=== PATIENT | female | born 1990 | race American Indian/Alaskan Native ===

== ENCOUNTER 2017-11-28 04:34 | Emergency (ER) | payer OTHER ==
[2017-11-28 05:23] LABS: Basophils # (Auto) 0.1 K/mm3 (0.0-0.1); Basophils % (Auto) 0.9 % (0.0-1.8); Eosinophils # (Auto) 0.1 K/mm3 (0.0-0.4); Eosinophils % (Auto) 0.8 % (0.0-4.3); Hematocrit 40.4 % (30.3-42.9); Hemoglobin 12.9 gm/dl (10.1-14.3); Lymphocytes # (Auto) 2.6 K/mm3 (1.2-5.4); Lymphocytes % (Auto) 31.7 % (13.4-35.0); Mean Corpuscular HGB Conc 32 % (30-34); Mean Corpuscular Volume 80 fl (79-97); Monocytes # (Auto) 0.6 K/mm3 (0.0-0.8); Monocytes % (Auto) 7.9 % (0.0-7.3); Platelet Count 255 K/mm3 (140-440); Red Blood Count 5.04 M/mm3 (3.65-5.03); Red Cell Distribution Width 12.9 % (13.2-15.2)
[2017-11-28 05:26] LABS: Mean Corpuscular Hemoglobin 26 pg (28-32)
[2017-11-28 05:36] LABS: Alanine Aminotransferase 15 units/L (7-56); Albumin 4.3 g/dL (3.9-5); BUN/Creatinine Ratio 10; Blood Urea Nitrogen 8 mg/dL (7-17); Calcium 9.4 mg/dL (8.4-10.2); Hemolysis Index 8
--- NOTE | 2017-11-28 06:55 | Emergency Department Report ---
ED Abdominal Pain HPI - General Chief Complaint: Abdominal Pain Stated Complaint: ABD PAIN Time Seen by Provider: 11/28/17 06:50 Source: patient Mode of arrival: Ambulatory Limitations: No Limitations - History of Present Illness Initial Comments: Patient is a 26-year-old female that presents emergency room with complaints of bilateral flank pain that radiated to her bilateral lower abdomen times one day. Patient states pain is a 8 out of 10 and severe. Patient states the pain is worse with urinating. Patient states the pain is better with rest. Patient denies dysuria, fever, chills, chest pain and shortness of breath. Patient states the pain is also worse with movement. MD Complaint: flank pain -: Sudden Location: bilateral flank Radiation: LLQ, RLQ Migration to: no migration Severity: severe Severity scale (0 -10): 8 Quality: stabbing Consistency: constant Improves With: rest Worsens With: movement, other (urinating) Associated Symptoms: nausea, vomiting. denies: diarrhea, fever, chills, constipation, dysuria, hematemesis, hematochezia, melena, hematuria, anorexia, syncope - Related Data LMP (females 10-50): last week Previous Rx's Medication Instructions Recorded Last Taken Type HYDROcodone/ACETAMINOPHEN [Mil[place] 1 each PO Q6HR PRN #12 tablet 11/28/17 Unknown Rx 5-325 Tablet] Ondansetron [Zofran Odt] 4 mg PO Q8HR PRN #10 tab.rapdis 11/28/17 Unknown Rx Tamsulosin HCl [Flomax] 0.4 mg PO QDAY 14 Days #14 11/28/17 Unknown Rx cap.er.24h Allergies Allergy/AdvReac Type Severity Reaction Status Date / Time No Known Allergies Allergy Unverified 11/28/17 05:00 ED Review of Systems ROS: Stated complaint: ABD PAIN Other details as noted in HPI Comment: All other systems reviewed and negative Constitutional: denies: chills, fever Eyes: denies: eye pain, eye discharge, vision change ENT: denies: ear pain, throat pain Respiratory: denies: cough, shortness of breath, wheezing Cardiovascular: denies: chest pain, palpitations Endocrine: no symptoms reported Gastrointestinal: abdominal pain, nausea, vomiting. denies: diarrhea Genitourinary: denies: urgency, dysuria, discharge Musculoskeletal: denies: back pain, joint swelling, arthralgia Skin: denies: rash, lesions Neurological: denies: headache, weakness, paresthesias Psychiatric: denies: anxiety, depression Hematological/Lymphatic: denies: easy bleeding, easy bruising ED Past Medical Hx - Past Medical History Previous Medical History?: No - Surgical History Past Surgical History?: Yes Additional Surgical History: c sec X2 hernia repair - Family History Family history: no significant - Social History Smoking Status: Current Every Day Smoker Substance Use Type: Alcohol - Medications Home Medications: Home Medications Medication Instructions Recorded Confirmed Last Taken Type HYDROcodone/ACETAMINOPHEN [Mil[place] 1 each PO Q6HR PRN #12 tablet 11/28/17 Unknown Rx 5-325 Tablet] Ondansetron [Zofran Odt] 4 mg PO Q8HR PRN #10 tab.rapdis 11/28/17 Unknown Rx Tamsulosin HCl [Flomax] 0.4 mg PO QDAY 14 Days #14 11/28/17 Unknown Rx cap.er.24h ED Physical Exam - General Limitations: No Limitations General appearance: alert, in no apparent distress - Head Head exam: Present: atraumatic, normocephalic - Eye Eye exam: Present: normal appearance - ENT ENT exam: Present: mucous membranes moist - Neck Neck exam: Present: normal inspection - Respiratory Respiratory exam: Present: normal lung sounds bilaterally. Absent: respiratory distress - Cardiovascular Cardiovascular Exam: Present: regular rate, normal rhythm. Absent: systolic murmur, diastolic murmur, rubs, gallop - GI/Abdominal GI/Abdominal exam: Present: soft, tenderness (bilateral flank tenderness and bilateral lower quadrant tenderness), normal bowel sounds - Extremities Exam Extremities exam: Present: normal inspection - Back Exam Back exam: Present: normal inspection - Neurological Exam Neurological exam: Present: alert, oriented X3 - Psychiatric Psychiatric exam: Present: normal affect, normal mood - Skin Skin exam: Present: warm, dry, intact, normal color. Absent: rash ED Course Vital Signs 11/28/17 11/28/17 11/28/17 04:42 06:52 06:58 Temperature 98.0 F Pulse Rate 51 L Respiratory 16 20 Rate Blood Pressure 125/77 O2 Sat by Pulse 98 100 96 Oximetry 11/28/17 11/28/17 11/28/17 07:00 07:34 07:46 Temperature Pulse Rate Respiratory Rate Blood Pressure 142/93 98/73 98/73 O2 Sat by Pulse 95 95 Oximetry - Reevaluation(s) Reevaluation #1: Patient sleeping in the room. Discussed all results with patient. Will discharge patient home. Patient stable for discharge. Patient given all discharge instructions and follow-up instructions. He voiced understanding 11/28/17 11:15 ED Medical Decision Making - Lab Data Result diagrams: 11/28/17 05:13 11/28/17 05:13 - Radiology Data Radiology results: report reviewed Renal stone. No other acute abdominal pathology is noted on CT scan - Medical Decision Making She is 26-year-old female who presented with bilateral flank pain. - Differential Diagnosis renal stone. UTI. Gastroenteritis. Critical care attestation.: If time is entered above; I have spent that time in minutes in the direct care of this critically ill patient, excluding procedure time. ED Disposition Clinical Impression: Abdominal pain, Bilateral flank pain, Renal stone, Dermoid cyst Disposition: TO HOME OR SELFCARE Is pt being admited?: No Does the pt Need Aspirin: No Condition: Stable Instructions: Kidney Stones (ED), Renal Colic (ED), How to Strain Your Urine ( ED), Abdominal Pain (ED), Flank Pain (ED) Additional Instructions: He is to follow-up with primary care in 3-5 days. Patient to follow up with urologist and to 4 days. Patient did take ibuprofen Tylenol when necessary for pain patient to take meds as directed. Patient to return to ER if condition worsens. Patient to rest. Patient to increase water. Patient to follow-up with [facility] for management of dermoid cyst. Prescriptions: HYDROcodone/ACETAMINOPHEN [Milan 5-325 Tablet] 1 each PO Q6HR PRN #12 tablet PRN Reason: Pain Ondansetron [Zofran Odt] 4 mg PO Q8HR PRN #10 tab.rapdis PRN Reason: Nausea And Vomiting Tamsulosin HCl [Flomax] 0.4 mg PO QDAY 14 Days #14 cap.er.24h Referrals: ANA SALGADO MD [Primary Care Provider] - 3-5 Days Time of Disposition: 11:19
[2017-11-28] MEDS ORDERED: ZOFRAN IV ONE (06:56)
[2017-11-28] MEDS ORDERED: TORADOL IV ONE (06:57)
[2017-11-28 07:01] LABS: Bilirubin,Urine NEG (Negative); Blood,Urine NEG (Negative); Color,Urine Yellow (Yellow); Mucus,Urine FEW /HPF; Protein,Urine <15 mg/dL mg/dL (Negative); Urobilinogen,Urine < 2.0 mg/dL (<2.0); WBC,Urine < 1.0 /HPF (0.0-6.0)
--- NOTE | 2017-11-28 07:34 | Cat Scan Report ---
FINAL REPORT EXAM: CT ABDOMEN PELVIS WO CON HISTORY: abd pain. jaxon flank pain TECHNIQUE: Routine axial imaging was obtained of the abdomen and pelvis without oral or IV contrast. Sagittal and coronal reconstructions were reviewed. FINDINGS: The lung bases are clear. Pleural fluid is not seen. The liver, gallbladder, pancreas, spleen, and adrenal glands appear normal. The kidneys reveal several punctate calcifications centrally in the left kidney. There is no evidence of hydronephrosis or perinephric fluid collections. The bowel loops are normal in caliber and course. The appendix is normal in size and shows no evidence inflammation. Adenopathy is not seen. Centrally in the pelvis above the bladder is a well-circumscribed ovoid predominantly fatty mass measuring 5.4 cm x 4.6 cm x 6 cm compatible with a dermoid cyst. The uterus and bladder appear normal. There are phleboliths along the floor pelvis. 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 IMPRESSION: No acute process in the abdomen and pelvis. Nonobstructing punctate calcifications in left kidney. No evidence of hydronephrosis. Dermoid cyst in the pelvis noted just above the bladder with measurements as described. Normal appendix.
[2017-11-28] MEDS ORDERED: NACL 0.9% 1000 ML 1,000 ML ONE (07:40)
[2017-11-28 07:50] VITALS: BP 98/73
[2017-11-28] MEDS ORDERED: NACL 0.9% 1000 ML 1,000 ML IV ONE (07:50)
== END 2017-11-28 11:34 | disposition home or self-care (01) ==
LOC: ED 04:34
DX: N20.0 Calculus of kidney (principal); D36.9 Benign neoplasm, unspecified site; F17.200 Nicotine dependence, unspecified, uncomplicated
CPT/HCPCS: 36415; 74176; 80053; 81001; 84703; 85025; 96361; 96374; 96375; 99284; J1885; J2405; J7030